=== PATIENT | male | born 1965 | race Caucasian/White ===

== ENCOUNTER 2017-05-22 07:31 | Outpatient (CLI) | payer BC ==
--- NOTE | 2017-05-22 08:38 | CT ---
CT BRAIN WITHOUT CONTRAST: HISTORY: Vertigo. FINDINGS: No evidence of acute infarct, hemorrhage, midline shift, or abnormal extraaxial fluid collections is seen. The ventricular size is normal and the basilar cisterns patent. The bony calvarium is intact. The visualized paranasal sinuses and mastoid air cells are well aerated. IMPRESSION: No CT evidence of acute intracranial process. POS: OFF
== END 2017-05-22 07:32 | disposition home or self-care (01) ==
LOC: SCSCT 07:31
PROVIDERS: ATTEND Family Medicine
DX: H53.452 Other localized visual field defect, left eye (principal); R42 Dizziness and giddiness; R51 Headache
CPT/HCPCS: 70450

== ENCOUNTER 2017-06-05 08:22 | Outpatient (CLI) | payer BC | END 2017-06-05 08:23 | disposition home or self-care (01) | LOC: BICMRI 08:22 | PROVIDERS: ATTEND Orthopaedic Surgery | DX: M25.562 Pain in left knee (principal); S83.242A Other tear of medial meniscus, current injury, left knee, initial encounter; M25.462 Effusion, left knee ==

== ENCOUNTER 2017-07-06 08:06 | Outpatient (CLI) | payer BC ==
--- NOTE | 2017-07-06 15:28 | EKG ---
Test Reason : Blood Pressure : / mmHG Vent. Rate : 065 BPM Atrial Rate : 065 BPM P-R Int : 182 ms QRS Dur : 110 ms QT Int : 370 ms P-R-T Axes : 060 033 065 degrees QTc Int : 384 ms Poor data quality, interpretation may be adversely affected Normal sinus rhythm Right bundle branch block Possible Anterior infarct , age undetermined Abnormal ECG Confirmed by SULAIMAN LLOYD ([id number]) on 07/06/2017 3:28:18 PM Referred By: LEBRON Confirmed By:SULAIMAN LLOYD
== END 2017-07-06 08:07 | disposition home or self-care (01) ==
LOC: LABBT 08:06
PROVIDERS: ATTEND Orthopaedic Surgery
DX: Z01.810 Encounter for preprocedural cardiovascular examination (principal); S83.242A Other tear of medial meniscus, current injury, left knee, initial encounter
CPT/HCPCS: 93005; 93010

== ENCOUNTER → 2017-07-08 | Day surgery (SDC) | payer BC ==
[2017-07-06 08:36] VITALS: BMI 20.9
--- NOTE | 2017-07-07 08:47 | HP ---
HISTORY OF PRESENT ILLNESS: The patient is a 51-year-old male who has a several-month history of lef t knee pain which began after running a 5K race around [employer]. There was no specific injury. His pain initially resolved with rest, but he resumed running and continues to have pain on the media l aspect of his knee. Partial relief with anti-inflammatory medications. PAST MEDICAL HISTORY: The patient is otherwise in good health. 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 CURRENT MEDICATIONS: He normally takes no routine medications. ALLERGIES: He has no known allergies. FAMILY HISTORY/SOCIAL HISTORY/REVIEW OF SYSTEMS: Otherwise unremarkable. PHYSICAL EXAMINATION: GENERAL: Reveals a healthy male. HEENT: Unremarkable. NECK: Supple. CHEST: Clear. HEART: Regular rate and rhythm. ABDOMEN: Soft, nontender. RECTAL/GENITAL: Deferred. EXTREMITIES: Pertinent findings to the left knee. There is puffiness, but no definite effusion. Th ere is normal alignment. There is tenderness over the medial joint line and pain with Lakeisha's man euver. There is full range of motion. There is pain with extremes of motion. There is no instabili ty. Neurovascular exam is intact with palpable distal pulses. LABORATORY AND X-RAY FINDINGS: X-rays of the left knee are essentially normal. There may be minimal arthritic changes. MRI scan of the left knee reveals some early degenerative changes and a medial m eniscal tear. IMPRESSION: Internal derangement, left knee with medial meniscal tear, possible component of degener ative joint disease. PLAN: Arthroscopy left knee with partial medial meniscectomy and/or debridement and shaving. The na ture of the surgery, length of recovery, and potential complications such as infection, loss of motio n, incomplete relief, thromboembolic phenomenon, neurovascular injury, post-traumatic degenerative ar thritis, recurrent tear and need for additional treatment or repeat surgery have been discussed in de tail.
[~2017-07-08] MED LIST: Bupivacaine 0.25% HCL 30 ML VIAL ONE; CEFAZOLIN/Water 2 GM/20 ML SYRINGE ONE; Fentanyl 100 MCG/2 ML VIAL ONE; Lidocaine 1% w/Epinephrine 1:200K 30 ML VIAL ONE
--- NOTE | 2017-07-08 09:59 | OP ---
DATE OF PROCEDURE: 07/08/2017 SURGEON: Jason Dockery M.D. ANESTHESIA: General. PREOPERATIVE DIAGNOSIS: Medial meniscal tear, left knee. POSTOPERATIVE DIAGNOSES: Medial meniscal tear, left knee, and early degenerative arthritis. PROCEDURE: Arthroscopy of left knee with partial medial meniscectomy. OPERATIVE FINDINGS: Examination under anesthesia revealed the knee to be stable. At arthroscopy, th ere was mild grade I, early grade II chondromalacia patella. No areas needing debridement or shaving . Examination of the medial compartment revealed grade II and early grade III changes in the weightb earing surface of the medial femoral condyle measuring approximately 1 x 2 cm. There are no areas of exposed bone. There was some fibrillated articular surface, which required debridement. There was a complex tear of the posterior horn of the medial meniscus, which was primarily a horizontal cleavag e type tear. ACL was intact. Lateral meniscus and lateral compartment were normal. NARRATIVE REPORT: After satisfactory anesthesia was induced in supine position, the patient was plac ed in a leg de la garza and prepped and draped in the routine manner. Left leg was elevated, exsanguinate d with an Esmarch bandage, and the tourniquet inflated to 250 mmHg. [place] arthroscope was introduc ed into the anterolateral portal, probe through an anteromedial portal, and inflow and outflow accomp lished through the scope using the [place] arthroscopy pump. Arthroscopy was carried out and the abo ve findings were noted. All findings were documented with the video printer and hard copies were mad e. Medial femoral condyle was debrided of fibrillated cartilage with a motorized shaver. The wastewater treatment engineer ior horn of the medial meniscus was debrided with the use of basket forceps and motorized shaver. Th e inferior leaflet of the horizontal cleavage tear was debrided back to the peripheral rim leaving th e superior leaflet. This was contoured and probed and found to be stable. The scope was then introd uced into anteromedial portal and all compartments visualized and no additional pathology found. The knee was copiously irrigated through the scope and all instruments were then withdrawn. A mixture o f 30 mL of 0.25% Marcaine and 30 mL of 1% lidocaine with epinephrine was mixed together and 30 mL of this was instilled into the knee joint, an additional 15 mL was injected about the portal sites. The portal sites were closed with 3-0 nylon. A sterile bulky compressive dressing was applied and the t ourniquet deflated after 22 minutes. The foot promptly pinked up. The patient was awakened and take n to the recovery room in stable condition. There were no apparent intraoperative complications. Th e estimated blood loss was negligible. The patient will be discharged home in satisfactory condition. Instructed in ice, elevation, use of crutches, and home exercise program by the Physical Therapy Department. He was given written wound c are instructions and a prescription for [place] 7.5 for pain, 40 tablets. He will be rechecked in my o ffice in 10-14 days or sooner if there are any problems prior to that time.
== END ==
LOC: SDC 06:49
PROVIDERS: ATTEND Orthopaedic Surgery
PROC: 0SBD4ZZ Excision of Left Knee Joint, Percutaneous Endoscopic Approach (ICD-10-PCS; principal; 2017-07-08)
DX: S83.232A Complex tear of medial meniscus, current injury, left knee, initial encounter (principal); M17.12 Unilateral primary osteoarthritis, left knee; E78.5 Hyperlipidemia, unspecified; D64.9 Anemia, unspecified; G43.909 Migraine, unspecified, not intractable, without status migrainosus; Z98.890 Other specified postprocedural states
CPT/HCPCS: G8978-GP-CI; G8979-GP-CI; G8980-GP-CI; J3010; S0020

== ENCOUNTER 2021-11-29 07:27 | Outpatient (CLI) | payer BC | END 2021-11-29 07:28 | disposition home or self-care (01) | LOC: BICRAD 07:27 | PROVIDERS: ATTEND Family Medicine | DX: R05.3 Chronic cough (principal); Z80.1 Family history of malignant neoplasm of trachea, bronchus and lung | CPT/HCPCS: 71046 ==